=== PATIENT | female | born 1985 | race Caucasian/White ===

== ENCOUNTER 2016-12-19 12:36 | Emergency (ER) | payer OTHER ==
[~2016-12-19] VITALS: Ht 157.5 cm; Wt 63.0 kg
[~2016-12-19 12:36] MED LIST: IBUP-238
[2016-12-19 12:42] VITALS: BP 139/87; PULSE 84; RESP 16; TEMP 97.6; O2SAT 98
[2016-12-19] MEDS ORDERED: ALPR0.25 PO (12:56)
[2016-12-19] MEDS ORDERED: SODIUM CHLOR 0.9% 1000 ML INJ 1,000 ML IV SCH (13:02)
[2016-12-19 13:05] LABS: BLOOD, URINE NEG (NEG); GLUCOSE,URINE NEG (NEG); KETONE, URINE TRACE mg/dL (NEG); NITRITE,URINE NEG (NEG)
[2016-12-19 13:11] LABS: METHOD OF COLLECTION CLEAN CATCH; URINE COLOR YELLOW (YELLW/STRAW)
[2016-12-19 13:13] LABS: AUTOMATED NEUTROPHIL # 5.6 TH/MM3 (1.8-7.7); BASOPHIL # 0.1 TH/MM3 (0-0.2); BASOPHIL % 0.7 % (0.0-2.0); EOSINOPHIL # 0.1 TH/MM3 (0-0.4); HEMATOCRIT 38.5 % (35.0-46.0); HEMO FLAGS DIFF FINAL; LYMPH % 29.2 % (9.0-44.0); LYMPHOCYTE # 2.6 TH/MM3 (1.0-4.8); MEAN CELL VOLUME 90.4 FL (80.0-100.0); MEAN CORPUSCULAR HEMOGLOBIN 30.4 PG (27.0-34.0); MEAN CORPUSCULAR HGB CONC 33.6 % (32.0-36.0); MONO % 7.1 % (0.0-8.0); PLATELET COUNT 175 TH/MM3 (150-450); RED BLOOD COUNT 4.26 MIL/MM3 (4.00-5.30); RED CELL DISTRIBUTION WIDTH 12.5 % (11.6-17.2)
[2016-12-19 13:13] LABS: BACTERIA, URINE MOD /hpf; COMMENT (UR) CULTURE INDICATED; CULTURE IF INDICATED CULTURE INDICATED; SQUAMOUS EPITHELIAL CELL URINE > 8 /hpf (0-5); WBC, URINE 0-2 /hpf (0-5)
[2016-12-19] MEDS ORDERED: SODIUM CHLORIDE 0.9% FLUSH 10 ML FLUSH IV FLUSH PRN (13:15)
[2016-12-19 13:22] LABS: CHLORIDE 107 MEQ/L (98-107); POTASSIUM 4.2 MEQ/L (3.5-5.1); SODIUM (NA) 137 MEQ/L (136-145)
[2016-12-19 13:26] LABS: ANION GAP 7 MEQ/L (5-15); BICARBONATE 23.1 MEQ/L (21.0-32.0); BLOOD UREA NITROGEN 16 MG/DL (7-18)
[2016-12-19 13:29] LABS: ALT (GPT) 19 U/L (10-53); AST (GOT) 11 U/L (15-37); GLOMERULAR FILTRATION RATE 97 ML/MIN (>89)
[2016-12-19 13:31] LABS: TOTAL BILIRUBIN ADULT 0.3 MG/DL (0.2-1.0)
[2016-12-19 13:32] LABS: ALKALINE PHOSPHATASE 52 U/L (45-117)
--- NOTE | 2016-12-19 13:33 | RADRPT ---
EXAM DATE/TIME: 12/19/2016 13:15 [place] COMPARISON: No previous studies available for comparison. INDICATIONS : Right flank pain. ORAL CONTRAST: No oral contrast ingested. RADIATION DOSE: 8.76 CTDIvol (mGy) MEDICAL HISTORY : None SURGICAL HISTORY : None. ENCOUNTER: Initial ACUITY: 4 - 6 days PAIN SCALE: 3/10 LOCATION: Right flank and radiates to front. TECHNIQUE: Volumetric scanning of the abdomen and pelvis was performed. Using automated exposure control and ad justment of the mA and/or kV according to patient size, radiation dose was kept as low as reasonably achievable to obtain optimal diagnostic quality images. DICOM format image data is available electro nically for review and comparison. FINDINGS: LOWER LUNGS: The visualized lower lungs are clear. LIVER: Homogeneous density without lesion. There is no dilation of the biliary tree. No calcified gallston es. SPLEEN: Normal size without lesion. PANCREAS: Within normal limits. KIDNEYS: Normal in size and shape. There is no mass, stone, or hydronephrosis. ADRENAL GLANDS: Within normal limits. VASCULAR: There is no aortic aneurysm. BOWEL/MESENTERY: The stomach, small bowel, and colon demonstrate no acute abnormality. There is no free intraperitone al air or fluid. Appendix is well-visualized, normal. ABDOMINAL WALL: Within normal limits. RETROPERITONEUM: There is no lymphadenopathy. BLADDER: No wall thickening or mass. REPRODUCTIVE: Within normal limits. INGUINAL: There is no lymphadenopathy or hernia. MUSCULOSKELETAL: Within normal limits for patient age. CONCLUSION: Normal noncontrast CT of the abdomen and pelvis. No stones or obstructive uropathy. Normal appendix. Tariq Ashraf MD on December 19, 2016 at 13:29 Board Certified Radiologist. This report was verified electronically.
[2016-12-19] MEDS ORDERED: CIPR250T52 PO (13:52)
--- NOTE | 2016-12-19 13:53 | PD ---
HPI Chief Complaint: Flank/Kidney Pain Time Seen by Provider: 12:59 Travel History International Travel<30 days: No Contact w/Intl Traveler<30days: No Traveled to known affect area: No History of Present Illness HPI 31 yo F c/o approx 4 days R flank pain. An outpatient center performed plain film which was normal so patient arrives requesting evaluation to rule out appendicitis. No hematuria, nausea or vomiting. + R flank pain with some radiation to the right upper quadrant area. Pt denies fever. No vb/vd. No similar prior episodes. Timing constant. Onset gradual. PFSH Past Medical History Anxiety: Yes ?: Not LMP: 2 WEEKS Past Surgical History Surgical History: No Previous Surgery Social History Alcohol Use: Yes (COUPLE TIMES PER WEEK) Tobacco Use: Yes (BLACK & MILDS) Substance Use: No Allergies-Medications (Allergen,Severity, Reaction): Coded Allergies: No Known Allergies (Verified Allergy, Severe, 12/19/16) Reported Meds & Prescriptions Reported Meds & Active Scripts Active Cipro (Ciprofloxacin HCl) 250 Mg Tab 250 Mg PO BID 3 Days Reported Alprazolam 0.25 Mg Tab 0.25 Mg PO Q8H PRN Review of Systems Except as stated in HPI: all other systems reviewed are Neg General / Constitutional: No: Fever Physical Exam Narrative GENERAL: 31 yo F, WNWD, NAD SKIN: Warm and dry. HEAD: Atraumatic. Normocephalic. EYES: Pupils equal and round. No scleral icterus. No injection or drainage. ENT: No nasal bleeding or discharge. Mucous membranes pink and moist. NECK: Trachea midline. No JVD. CARDIOVASCULAR: Regular rate and rhythm. RESPIRATORY: No accessory muscle use. Clear to auscultation. Breath sounds equal bilaterally. GASTROINTESTINAL: Soft. + TTP RUQ. No TTP at McBurney's point. Abdomen soft. MUSCULOSKELETAL: Extremities without clubbing, cyanosis, or edema. No obvious deformities. NEUROLOGICAL: Awake and alert. No obvious cranial nerve deficits. Motor grossly within normal limits. Five out of 5 muscle strength in the arms and legs. Normal speech. PSYCHIATRIC: Appropriate mood and affect; insight and judgment normal. Data Data Last Documented VS Vital Signs Date Time Temp Pulse Resp B/P (MAP) Pulse Ox O2 Delivery O2 Flow Rate FiO2 12/19/16 12:42 97.6 84 16 139/87 (104) 98 VS reviewed Orders Orders Urinalysis - C+S If Indicated (12/19/16 12:45) Ed Urine Pregnancytest Poc (12/19/16 12:45) Complete Blood Count With Diff (12/19/16 13:02) Comprehensive Metabolic Panel (12/19/16 13:02) Lipase (12/19/16 13:02) Ct Abd/Pel W/O Iv Contrast (12/19/16 13:02) Iv Access Insert/Monitor (12/19/16 13:02) Ecg Monitoring (12/19/16 13:02) Oximetry (12/19/16 13:02) Sodium Chlor 0.9% 1000 Ml Inj (Ns 1000 M (12/19/16 13:02) Sodium Chloride 0.9% Flush (Ns Flush) (12/19/16 13:15) Urine Culture (12/19/16 12:55) Ed Discharge Order (12/19/16 13:50) Labs Laboratory Tests Test 12/19/16 12:55 12/19/16 13:00 Urine Collection Type CLEAN CATCH Urine Color YELLOW Urine Turbidity SLIGHT Urine pH 6.0 Urine Specific [place] 1.032 Urine Protein NEG mg/dL Urine Glucose (UA) NEG mg/dL Urine Ketones TRACE mg/dL Urine Occult Blood NEG Urine Nitrite NEG Urine Bilirubin NEG Urine Leukocyte Esterase NEG Urine WBC 0-2 /hpf Urine Squamous Epithelial Cells > 8 /hpf Urine Amorphous Sediment FEW Urine Bacteria MOD /hpf Microscopic Urinalysis Comment CULTURE INDICATED Urine Collection Time 1255 White Blood Count 9.0 TH/MM3 Red Blood Count 4.26 MIL/MM3 Hemoglobin 12.9 GM/DL Hematocrit 38.5 % Mean Corpuscular Volume 90.4 FL Mean Corpuscular Hemoglobin 30.4 PG Mean Corpuscular Hemoglobin Concent 33.6 % Red Cell Distribution Width 12.5 % Platelet Count 175 TH/MM3 Mean Platelet Volume 8.8 FL Neutrophils (%) (Auto) 62.0 % Lymphocytes (%) (Auto) 29.2 % Monocytes (%) (Auto) 7.1 % Eosinophils (%) (Auto) 1.0 % Basophils (%) (Auto) 0.7 % Neutrophils # (Auto) 5.6 TH/MM3 Lymphocytes # (Auto) 2.6 TH/MM3 Monocytes # (Auto) 0.6 TH/MM3 Eosinophils # (Auto) 0.1 TH/MM3 Basophils # (Auto) 0.1 TH/MM3 CBC Comment DIFF FINAL Differential Comment Blood Urea Nitrogen 16 MG/DL Creatinine 0.70 MG/DL Random Glucose 84 MG/DL Total Protein 6.9 GM/DL Albumin 3.5 GM/DL Calcium Level 8.5 MG/DL Alkaline Phosphatase 52 U/L Aspartate Amino Transf (AST/SGOT) 11 U/L Alanine Aminotransferase (ALT/SGPT) 19 U/L Total Bilirubin 0.3 MG/DL Sodium Level 137 MEQ/L Potassium Level 4.2 MEQ/L Chloride Level 107 MEQ/L Carbon Dioxide Level 23.1 MEQ/L Anion Gap 7 MEQ/L Estimat Glomerular Filtration Rate 97 ML/MIN Lipase 166 U/L MDM Medical Decision Making Medical Screen Exam Complete: Yes Emergency Medical Condition: Yes Medical Record Reviewed: Yes Differential Diagnosis renal calculous, appendicitis, pyelonephritis, UTI, septic stone, hepatobiliary disease Narrative Course CBC & BMP Diagram 12/19/16 13:00 Total Protein 6.9, Albumin 3.5, Calcium Level 8.5, Alkaline Phosphatase 52, Aspartate Amino Transf (AST/SGOT) 11 L, Alanine Aminotransferase (ALT/SGPT) 19, Total Bilirubin 0.3 Last 24 hours Impressions Abdomen/Pelvis CT 12/19/16 1302 Signed Impressions: Service Date/Time: Monday, December 19, 2016 13:15 - CONCLUSION: Normal noncontrast CT of the abdomen and pelvis. No stones or obstructive uropathy. Normal appendix. Tariq Ashraf MD UA: bacteriuria Minimal prominent intraperitoneal lymphadenopathy. With normal work up aside from moderate bacteria on UA, pt safe for discharge. ? Mesenteric adenitis ? Weak positive UA Cipro script Return precautions discussed Pt verbalized understanding Pt ready for discharge Diagnosis Primary Impression: UTI (urinary tract infection) Qualified Codes: N39.0 - Urinary tract infection, site not specified Additional Instructions: PLEASE COMPLETE ANTIBIOTIC COURSE. IF YOUR PAIN PERSISTS OR WORSENS, ESPECIALLY WITHIN THE NEXT 8 HOURS, PLEASE RETURN TO THE ER WITHOUT DELAY. Med/Other Pt SpecificInfo: Prescription(s) given Scripts Ciprofloxacin (Cipro) 250 Mg Tab 250 MG PO BID for Infection for 3 Days, #6 TAB 0 Refills Prov: Lio Weinberg MD 12/19/16 Disposition: 01 DISCHARGE HOME Condition: Stable Lio Weinberg MD Dec 19, 2016 13:53
== END 2016-12-19 14:05 | disposition home or self-care (01) ==
LOC: PHED 12:36
DX: N39.0 Urinary tract infection, site not specified (principal); B96.89 Other specified bacterial agents as the cause of diseases classified elsewhere; Z72.0 Tobacco use
CPT/HCPCS: 74176; 80053; 81001; 83690; 84703; 85025; 87086; 96360; 99285; J7030